=== PATIENT | female | born 1970 | race Caucasian/White ===

== ENCOUNTER 2019-10-05 07:09 | Inpatient (IN) | payer OTHER ==
[~2019-10-05 07:09] MED LIST: Acetaminophen 500 MG Tab PO ONE; Celecoxib 200 MG Cap PO ONE; Gabapentin 300 MG Cap PO ONE; Scopolamine 1.5 MG Transdermal Patch TRDERM SCH; cefOXitin 2 GM Vial ONE
[2019-10-05] MEDS ORDERED: Dextrose 5%-Lactated Ringers 1,000 ML IV SCH (07:30)
[2019-10-05] MEDS ORDERED: Ondansetron 4 MG/2 ML SDV ONE (07:38)
[2019-10-05] MEDS ORDERED: Propofol 200 MG/20 ML SDV ONE ×2 (07:38→10:07)
[2019-10-05] MEDS ORDERED: Succinylcholine 200 MG/10 ML MDV ONE (07:38)
[2019-10-05] MEDS ORDERED: Rocuronium 50 MG/5 ML Vial ONE (07:38)
[2019-10-05] MEDS ORDERED: Dexamethasone 4 MG/ML SDV ONE (07:38)
[2019-10-05] MEDS ORDERED: Neostigmine Methylsulfate 1 MG/ML 5 ML Syringe ONE (07:38)
[2019-10-05] MEDS ORDERED: Glycopyrrolate 0.2 MG/ML 5 ML MDV ONE (07:38)
[2019-10-05] MEDS ORDERED: fentaNYL 250 MCG/5 ML SDV ONE ×2 (07:40→09:12)
[2019-10-05] MEDS ORDERED: Albuterol/Ipratropium 3.0-0.5 MG/3 ML Neb Soln NEB ONE (07:46)
[2019-10-05] MEDS ORDERED: cefOXitin 2 GM in Sodium Chloride 0.9% 50 ML IV ONE (08:30)
[2019-10-05] MEDS ORDERED: Ketamine 50 MG in Sodium Chloride 0.9% 49.5 ML IV SCH (08:30)
[2019-10-05] MEDS ORDERED: Magnesium Sulfate 3 GM in Sodium Chloride 0.9% 100 ML IV SCH (08:30)
[2019-10-05] MEDS ORDERED: Ketamine 500 MG/5 ML MDV IV SCH (08:30)
[2019-10-05] MEDS: SODIUM CHLORIDE 0.9% IV ONE ×2 (08:39→12:04)
[2019-10-05] MEDS: MAGNESIUM SULFATE IV ONE ×2 (08:39→12:04)
[2019-10-05] MEDS ORDERED: fentaNYL 100 MCG/2 ML SDV IVPUSH ONE ×2 (10:37→11:13)
[2019-10-05] MEDS ORDERED: hydrOXYzine HCL 100 MG/2 ML SDV IM ONE (10:37)
[2019-10-05] MEDS ORDERED: Ondansetron 4 MG/2 ML SDV IVPUSH PRN (12:17)
[2019-10-05] MEDS ORDERED: diphenhydrAMINE 50 MG/ML SDV IVPUSH PRN (12:19)
[2019-10-05] MEDS ORDERED: Metoclopramide 10 MG/2 ML SDV IVPUSH PRN (12:19)
[2019-10-05] MEDS ORDERED: Albuterol/Ipratropium 3.0-0.5 MG/3 ML Neb Soln INH PRN (12:19)
[2019-10-05] MEDS ORDERED: Labetalol 20 MG/4 ML Syringe IVPUSH PRN (12:19)
[2019-10-05] MEDS ORDERED: HYDROmorphone 0.5 MG/0.5 ML Syringe IVPUSH PRN (12:19)
[2019-10-05] MEDS ORDERED: Cyclobenzaprine 10 MG Tab PO PRN (12:19)
[2019-10-05] MEDS ORDERED: Calcium Gluconate 10% 1 GM/10 ML SDV IVPUSH PRN (12:19)
[2019-10-05] MEDS ORDERED: HYDROmorphone 1 MG/ML Syringe IV PRN (12:19)
[2019-10-05] MEDS ORDERED: hydrOXYzine HCL 100 MG/2 ML SDV IM PRN (12:19)
[2019-10-05] MEDS ORDERED: Acetaminophen 500 MG Tab PO PRN (14:00)
[2019-10-05] MEDS ORDERED: Pantoprazole 40 MG Vial IVPUSH SCH (14:00)
[2019-10-05] MEDS: Albuterol/Ipratropium 3.0-0.5 MG/3 ML Neb Soln INH SCH ×2 (14:47→20:35)
[2019-10-05] MEDS: cefOXitin 2 GM in Sodium Chloride 0.9% 50 ML IV SCH ×2 (14:53→20:35)
[2019-10-05] MEDS: Acetaminophen 500 MG Tab PO SCH ×2 (14:54→22:40)
[2019-10-05] MEDS: Gabapentin 250 MG/5 ML Solution ML 470 ML Bottle PO SCH ×2 (14:56→20:36)
[2019-10-05] MEDS: SCOPOLAMINE PATCH CHECK TOP SCH (15:15)
[2019-10-05] MEDS ORDERED: MVI, Adult with Vitamin K 10 ML, Thiamine 200 MG, Chromium/Copper/Mang/Selen/Zn 1 ML in... IV SCH ×4 (16:00)
[2019-10-05] MEDS: oxyCODONE 5 MG Tab PO PRN (18:05)
[2019-10-05] MEDS: Heparin Sodium 5,000 Units/ML Vial SUBCUT SCH (18:06)
[2019-10-05] MEDS: Dextrose 5%-Lactated Ringers 1,000 ML IV SCH (22:44)
[2019-10-06] MEDS: oxyCODONE 5 MG Tab PO PRN ×2 (00:59→18:09)
[2019-10-06] MEDS: cefOXitin 2 GM in Sodium Chloride 0.9% 50 ML IV SCH (01:01)
[2019-10-06] MEDS ORDERED: Iopamidol 612 MG/ML 50 ML SDV PO PRN (02:03)
[2019-10-06] MEDS: Dextrose 5%-Lactated Ringers 1,000 ML IV SCH (04:48)
[2019-10-06] MEDS: Acetaminophen 500 MG Tab PO SCH ×3 (05:09→21:51)
[2019-10-06] MEDS: Heparin Sodium 5,000 Units/ML Vial SUBCUT SCH ×2 (05:10→17:00)
[2019-10-06] MEDS: Albuterol/Ipratropium 3.0-0.5 MG/3 ML Neb Soln INH SCH ×6 (07:20→20:34)
[2019-10-06] MEDS: Celecoxib 200 MG Cap PO SCH ×2 (09:01→20:35)
[2019-10-06] MEDS: SCOPOLAMINE PATCH CHECK TOP SCH (09:03)
[2019-10-06] MEDS: Gabapentin 250 MG/5 ML Solution ML 470 ML Bottle PO SCH ×3 (09:09→20:34)
[2019-10-07] MEDS: Heparin Sodium 5,000 Units/ML Vial SUBCUT SCH ×2 (05:18→17:56)
[2019-10-07] MEDS: Acetaminophen 500 MG Tab PO SCH ×3 (05:18→21:03)
[2019-10-07] MEDS: Albuterol/Ipratropium 3.0-0.5 MG/3 ML Neb Soln INH SCH ×4 (07:11→21:03)
[2019-10-07] MEDS: Docusate Sodium 100 MG Cap PO SCH ×2 (08:26→21:01)
[2019-10-07] MEDS: Bisacodyl 5 MG Tab PO SCH ×2 (08:26→21:01)
[2019-10-07] MEDS: SCOPOLAMINE PATCH CHECK TOP SCH (08:29)
[2019-10-07] MEDS: Celecoxib 200 MG Cap PO SCH ×2 (08:29→21:03)
[2019-10-07] MEDS: Gabapentin 250 MG/5 ML Solution ML 470 ML Bottle PO SCH ×3 (08:32→21:07)
[2019-10-07] MEDS ORDERED: Cyanocobalamin (Vitamin B12) 1,000 MCG/ML SDV IM ONE (09:00)
--- NOTE | 2019-10-07 15:02 | PN ---
DATE OF SERVICE: 10/06/2019 The patient has been afebrile with stable vital signs status post sleeve gastrectomy and hiatal hernia repair yesterday. Clinically, she is doing well. Upper GI x-ray looked good. She is tolerating oral diet. We will go up to step 2 diet. and she will probably be ready for discharge home tomorrow. Rafa Mcmanus MD /[id number]
[2019-10-08] MEDS: Heparin Sodium 5,000 Units/ML Vial SUBCUT SCH (05:05)
[2019-10-08] MEDS: Acetaminophen 500 MG Tab PO SCH (05:06)
[2019-10-08] MEDS: Albuterol/Ipratropium 3.0-0.5 MG/3 ML Neb Soln INH SCH (07:30)
[2019-10-08] MEDS ORDERED: Ondansetron 4 MG Tab.DIS PO PRN (07:48)
[2019-10-08] MEDS: Celecoxib 200 MG Cap PO SCH (08:05)
[2019-10-08] MEDS: Docusate Sodium 100 MG Cap PO SCH (08:06)
[2019-10-08] MEDS: Bisacodyl 5 MG Tab PO SCH (08:06)
[2019-10-08] MEDS: Gabapentin 250 MG/5 ML Solution ML 470 ML Bottle PO SCH (08:08)
--- NOTE | 2019-10-08 08:49 | CR ---
UGI Limited HISTORY: Postbariatric surgery FINDINGS: Patient swallowed water-soluble contrast. Upright views of the abdomen show no evidence of extravasation or obstruction. There is a small jejunal diverticula IMPRESSION: Status post bariatric surgery No extravasation or obstruction seen
--- NOTE | 2019-10-08 11:21 | PN ---
DATE OF SERVICE: 10/07/2019 The patient has been afebrile with stable vital signs. She is feeling fairly crampy at this point, not quite ready to go home. We will work on getting the bowels going today. Also, she needs little bit more workup with regard to pulmonary toilet. She will likely be ready for discharge home tomorrow. Rafa Mcmanus MD /[id number]
--- NOTE | 2019-10-08 12:12 | DISCH ---
ADMISSION DIAGNOSES: 1. Morbid obesity. 2. BMI 40.7. 3. Hypothyroidism. DISCHARGE DIAGNOSES: Laparoscopic sleeve gastrectomy, liver biopsy, repair of diaphragmatic hernia with mesh and excision of mediastinal lipoma for morbid obesity, hepatomegaly, paraesophageal diaphragmatic hernia, and mediastinal lipoma. Date of surgery: 10/05/2019. Surgeon: Rafa Mcmanus MD. HISTORY: Ching Georges is a 49-year-old female with morbid obesity and increasing comorbidities. After preoperative evaluation and discussion of possible risks and possible complications, she wished to proceed with surgical procedure. HOSPITAL COURSE: Ching had her surgery on 10/05/2019. She had no operative complications. On postoperative day #1, her upper GI was normal. She was started on step 2 gastric bypass diet. On postop day #2, she got bowel stimulation, vitamin B12 1000 mcg IM injection. Her activity was good. Vital signs remained stable. On postoperative day #3, she was able to be discharged to home without any complications. PHYSICAL EXAMINATION: GENERAL: Ching Georges is a 49-year-old female. VITAL SIGNS: Height is 5 feet 4.5 inches, weight is 241 pounds, BMI 40.7. TPR 96.8, 93, 18, blood pressure 120/61. HEENT: Negative. NECK: Supple. HEART: Regular rate and rhythm. LUNGS: Clear. ABDOMEN: Sutures intact. 4x4s will be placed over PIETRO drain when removed. Abdominal binder has been on. EXTREMITIES: Without peripheral edema. DISPOSITION: Discharged to home. CONDITION: Stable and improving. FOLLOWUP: Appointment with Georgie Chan PA-C, on 10/15/2019 at 10:00 a.m. HOME MEDICATIONS: 1. Tylenol 1000 mg every 8 hours scheduled for 2 weeks. 2. Zofran ODT 4 mg every 4 hours p.r.n. nausea #30. 3. To start taking Celebrex 200 mg for 14 days. 4. Albuterol inhaler 1 to 2 puffs every 4 hours p.r.n. shortness of breath. 5. Thyroid pork, natural thyroid, 65 mg oral daily. 6. Stop taking ibuprofen. DIET: Step 2 gastric bypass diet with no cereal until 11/05/2019. Drink 8 to 10 glasses of water a day. ACTIVITY: No lifting greater than 10 pounds for 2 weeks. Other activity: Walk at least 6 times daily inside your home. Driving after discharge: Do not drive for 1 week. Shower/bathing: May shower. DISCHARGE INSTRUCTIONS: Notify provider if any fever, increased pain, nausea, or vomiting. Keep site clean and dry. Wear abdominal binder for 2 weeks and then as tolerated. Use incentive spirometer 10 times every hour while awake.
--- NOTE | 2019-10-14 11:06 | OR ---
DATE OF PROCEDURE: 10/05/2019 SURGEON: Rafa Mcmanus MD PREOPERATIVE DIAGNOSIS: Morbid obesity. POSTOPERATIVE DIAGNOSES: 1. Morbid obesity. 2. Marked hepatomegaly. 3. Paraesophageal diaphragmatic hernia. 4. Mediastinal lipoma. OPERATIVE PROCEDURES: 1. Laparoscopic sleeve gastrectomy (27026). 2. Diony-Cut needle liver biopsy (28890). 3. Repair of paraesophageal diaphragmatic hernia with mesh (28607). 4. Excision of mediastinal lipoma (21917). ANESTHESIA: General. INDICATIONS FOR PROCEDURE: This is a 49-year-old female presenting with longstanding morbid obesity, increasingly significant comorbidities. After preoperative evaluation and discussion, she wished to proceed with a sleeve gastrectomy. Potential risks of the procedure including bleeding, infection, injury to underlying viscera, problems with the staple line leaking as well as the remote possibility of cardiopulmonary, septic, or hemorrhagic complications leading to were discussed, and the patient wishes to proceed. DETAILS OF PROCEDURE: The patient was taken to the operating room and placed in a supine position. After general endotracheal anesthesia was induced, she converted to a lithotomy position and the abdomen prepped and draped. 15 cm inferior and 5 cm left of the xiphoid process, transverse incision was made and peritoneal cavity inflated 15 mmHg pressure with CO2. Laparoscope was reinserted. No underlying trocar insertion site injuries were seen. Bilateral transversus abdominis plane blocks were then placed and 5 additional trocars were placed across the upper and midabdomen. The liver was noted to be quite enlarged and fatty infiltrated and Diony-Cut biopsies were obtained from left lobe of the liver. Minimal bleeding from the biopsy sites was controlled with electrocautery. The liver was then retracted anteriorly. The patient was noted to have a fairly large paraesophageal diaphragmatic hernia. This contained some perigastric fat as well as some omentum in it. This was reduced and peritoneum overlying it was initially divided anteriorly, then the crura dissected from the distal esophagus on each side and then the retroesophageal plane dissected. The soft tissues around the esophagus were then freed up such that roughly 4 cm intraabdominal esophageal length was established. During the course of the dissection, mediastinal lipoma was encountered and facilitated more adequate crural repair. This was removed. The crura was then closed posteriorly with 0 Ethibond sutures reinforced with PTFE pledgets. Due to the size of the diaphragmatic hernia, the crural repair was augmented with a Phasix ST mesh cut such that it would lay over the crural repair and snugly onto the sides of the crura. This was fixed with some titanium tacking screws. At this point, the omentum was then divided away from the greater curvature of the stomach with Harmonic Scalpel. This continued proximally to include division including the highest and posterior short gastric vessels. The fundus of stomach was then removed from the otherwise skeletonized left crura at this point to avoid diagonally large pouch in that area. The omental division then continued distally to 0.2 cm proximal to the pylorus. Continuing at that level, the sleeve gastrectomy was initiated with 1st 3 firings being unreinforced black loads. Care was taken to avoid overtightening of the incisura angularis. At this point, a 22-Kyrgyz tube was placed orally and positioned along the lesser curvature of the stomach placed on suction, and the remainder of the sleeve gastrectomy. Staple lines were placed with a combination of reinforced black and reinforced purple loads and the specimen passed off the site. The diaphragmatic hernia, the area around the esophagogastric junction was then reinforced with some fibrin sealant as well as the omentum being tacked up into that area. The remainder of the sleeve gastrectomy also then had some fibrin sealant placed on the staple line. A leak test was accomplished with injection of air into the gastric tube while the duodenum was compressed, and the area being soaked in antibiotic-containing saline solution. No leaks or bleeding or other problems were noted. The orogastric tube was then removed. Specimen was then delivered at this point through the left lateral trocar site. A single Reynaldo-Calvo drain was then placed adjacent to the esophagogastric junction and from there up into the splenic fossa. Trocars were then removed. The fascia at the trocar sites was closed with 0 Vicryl stitch and skin with 4-0 Vicryl skin stitch. Dressing was applied. The patient was taken to the recovery room in satisfactory condition. There were no evident complications. Rafa Mcmanus MD /[id number]
== END 2019-10-08 09:20 | disposition home or self-care (01) | DRG 621 ==
LOC: JP.SDS 07:09 → JP.SDSSCHI 07:09 → EDSTATUS 07:15 → JP.MS 10:30
PROVIDERS: ADMIT Surgery; ATTEND Surgery
PROC: 0DB64Z3 Excision of Stomach, Percutaneous Endoscopic Approach, Vertical (ICD-10-PCS; principal; 2019-10-05)
PROC: 0FB24ZX Excision of Left Lobe Liver, Percutaneous Endoscopic Approach, Diagnostic (ICD-10-PCS; 2019-10-05)
PROC: 0BUT4JZ Supplement Diaphragm with Synthetic Substitute, Percutaneous Endoscopic Approach (ICD-10-PCS; 2019-10-05)
PROC: 0JB63ZZ Excision of Chest Subcutaneous Tissue and Fascia, Percutaneous Approach (ICD-10-PCS; 2019-10-05)
DX: E66.01 Morbid (severe) obesity due to excess calories (principal); Z68.41 Body mass index [BMI] 40.0-44.9, adult; E03.9 Hypothyroidism, unspecified; R16.0 Hepatomegaly, not elsewhere classified; D17.4 Benign lipomatous neoplasm of intrathoracic organs
CPT/HCPCS: 36415; 74240; 74240-26; 81025; 83735; 84100; 86850; 86900; 86901; 88304; 88307; 88313; 94640; 94762; A9270-GY; C1713; C1781; C9113; J0171; J0330; J0694; J1100; J1170; J1644; J2405; J2704; J2710; J2765; J2795; J3010; J3410; J3411; J3420; J3475; J3490; J7050; J7121; J7620-GY; Q9967

== ENCOUNTER 2020-07-17 00:10 | Emergency (ER) | payer OTHER ==
[2020-07-17] MEDS ORDERED: Ondansetron 4 MG Tab.DIS PO ONE (01:11)
[2020-07-17] MEDS ORDERED: Acetaminophen 500 MG Tab PO ONE (01:12)
[2020-07-17] MEDS ORDERED: Bacitracin Oint 1 GM U/D Packet TOP ONE (01:14)
--- NOTE | 2020-07-17 01:15 | EDM.PDOC ---
ED HPI GENERAL MEDICAL PROBLEM - General Chief Complaint: Laceration Stated Complaint: FELL HITTING RIGHT SIDE OF HEAD Time Seen by Provider: 07/17/20 00:50 Source of Information: Reports: Patient, Old Records, RN History Limitations: Reports: No Limitations - History of Present Illness INITIAL COMMENTS - FREE TEXT/NARRATIVE: 50 yo female was screened in the clinic yesterday for Covid due to recent onset of sx's. Her test results are pending. Tonight she got out of bed to get some food in the kitchen and got light-headed and passed out striking the back of her head. She reports nausea without vomiting and a CALDERA. No new neck pain. 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 laceration Pain Score (Numeric/FACES): 8 - Related Data Allergies Allergy/AdvReac Type Severity Reaction Status Date / Time Penicillins Allergy hives and Verified 07/17/20 00:37 hives in throat clindamycin AdvReac Nausea Verified 07/17/20 00:37 erythromycin base AdvReac Nausea Verified 07/17/20 00:37 gluten AdvReac Nausea Verified 07/17/20 00:37 Sulfa (Sulfonamide AdvReac Nausea Verified 07/17/20 00:37 Antibiotics) Home Meds: Home Meds Thyroid,Pork [Nature-Throid] 65 mg PO DAILY 10/02/19 [History] Albuterol Sulfate [Albuterol Sulfate Hfa] 1 - 2 puff INH Q4H PRN 10/05/19 [History] Ondansetron [Zofran ODT] 4 mg PO Q4H PRN #30 tab.dis 10/08/19 [Rx] Acetaminophen [Tylenol Extra Strength] 1,000 mg PO Q8H 07/17/20 [History] Omeprazole 20 mg PO DAILY 07/17/20 [History] Past Medical History HEENT History: Reports: Impaired Vision, Other (See Below) Other HEENT History: Glasses Respiratory History: Reports: Asthma 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 History: Reports: GERD 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: Musculoskeletal History: Reports: Back Pain, Chronic, Fracture, Neck Pain, Chronic Neurological History: Reports: Migraines Endocrine/Metabolic History: Reports: Hypothyroidism, Obesity/BMI 30+ - Infectious Disease History Infectious Disease History: Reports: Chicken Pox - Past Surgical History HEENT Surgical History: Reports: Adenoidectomy, Tonsillectomy, Other (See Below) Other HEENT Surgeries/Procedures: eyelid surgery Respiratory Surgical History: Reports: None GI Surgical History: Reports: Bariatric Procedure, Cholecystectomy, Hernia Repair/Other Endocrine Surgical History: Reports: Other (See Below) Other Endocrine Surgeries/Procedures: partial thyroidectomy Neurological Surgical History: Reports: None Musculoskeletal Surgical History: Reports: Other (See Below) Other Musculoskeletal Surgeries/Procedures:: left ankle/foot surgery January 2019 Social & Family History - Family History HEENT: Reports: Glaucoma Other HEENT Family History: enlarged arteries in eyes Cardiac: Reports: [place] Oncologic: Reports: Breast - Tobacco Use Tobacco Use Status *Q: Never Tobacco User - Caffeine Use Caffeine Use: Reports: None - Recreational Drug Use Recreational Drug Use: No ED ROS GENERAL - Review of Systems Review Of Systems: See Below Constitutional: Reports: No Symptoms HEENT: Reports: No Symptoms Respiratory: Reports: No Symptoms Cardiovascular: Reports: Lightheadedness (before her fall), Syncope (brief before arrival) GI/Abdominal: Reports: Nausea. Denies: Vomiting : Reports: No Symptoms Musculoskeletal: Reports: No Symptoms Skin: Reports: Wound (occiput) Neurological: Reports: Headache. Denies: Confusion ED EXAM, SKIN/RASH Exam: See Below Exam Limited By: No Limitations General Appearance: Alert, WD/WN, No Apparent Distress Eye Exam: Bilateral Eye: Normal Inspection Ears: Normal External Exam, Normal Canal, Hearing Grossly Normal, Normal TMs Nose: Normal Inspection, No Blood Throat/Mouth: Normal Inspection, Normal Lips, Normal Voice, No Airway Compromise Head: Other (occipital hematoma with a central 2 cm laceration) Neck: Normal Inspection, Supple, Non-Tender Respiratory/Chest: No Respiratory Distress, Lungs Clear, Normal Breath Sounds, No Accessory Muscle Use Cardiovascular: Regular Rate, Rhythm, No Edema Back Exam: Normal Inspection. No: Paraspinal Tenderness, Vertebral Tenderness Extremities: Normal Inspection, Normal Range of Motion, Non-Tender, No Pedal Edema Neurological: Alert, Oriented, CN II-XII Intact, Normal Cognition, No Motor/Sensory Deficits Psychiatric: Normal Affect, Normal Mood Skin: Warm, Dry, Normal Color, No Rash, Wound/Incision Location, Skin: Head (occiput) Characteristics: Linear Associated features: Tenderness, Induration. No: Lymphangitis Course - Vital Signs Last Recorded V/S: Last Vital Signs Temp 36.6 C 07/17/20 00:55 Pulse 80 07/17/20 00:55 Resp 14 07/17/20 00:55 BP 127/78 07/17/20 00:55 Pulse Ox 100 07/17/20 00:55 Orthostatic Blood Pressure [ 136/89 Standing] Orthostatic Blood Pressure [ 136/91 Sitting] Orthostatic Blood Pressure [ 127/85 Supine] - Orders/Labs/Meds Orders: Active Orders 24 hr Category Date Time Status Orthostatic Vital Signs [RC] ASDIRECTED Care 07/17/20 00:42 Active Head wo Cont [CT] Stat Exams 07/17/20 01:13 Taken Meds: Medications Discontinued Medications Generic Name Dose Route Start Last Admin Trade Name Freq PRN Reason Stop Dose Admin Acetaminophen 1,000 mg 07/17/20 01:12 07/17/20 01:16 Tylenol Extra Strength PO 07/17/20 01:13 1,000 mg ONETIME ONE Administration Bacitracin 2 dose 07/17/20 01:14 07/17/20 01:17 Bacitracin Oint 1 Gm TOP 07/17/20 01:15 2 dose ONETIME ONE Administration Ondansetron HCl 4 mg 07/17/20 01:11 07/17/20 01:16 Zofran Odt PO 07/17/20 01:12 4 mg ONETIME ONE Administration - Radiology Interpretation Free Text/Narrative:: Head CT scan-no intracranial pathology CT Results Date: 07/17/20 CT Results Time: 02:05 Departure - Departure Time of Disposition: 02:15 Disposition: Home, Self-Care 01 Condition: Fair Clinical Impression: Scalp hematoma Qualifiers: Encounter type: initial encounter Qualified Code(s): S00.03XA - Contusion of scalp, initial encounter Concussion Qualifiers: Encounter type: initial encounter Loss of consciousness presence/duration: without LOC Qualified Code(s): S06.0X0A - Concussion without loss of consciousness, initial encounter Occipital scalp laceration Qualifiers: Encounter type: initial encounter Qualified Code(s): S01.01XA - Laceration without foreign body of scalp, initial encounter - Discharge Information *PRESCRIPTION DRUG MONITORING PROGRAM REVIEWED*: Not Applicable *COPY OF PRESCRIPTION DRUG MONITORING REPORT IN PATIENT EDMUND: Not Applicable Instructions: Laceration Care, Adult, [id number], Concussion, Adult, [id number] Referrals: PCP,None [Primary Care Provider] - Forms: ED Department Discharge Additional Instructions: Acetaminophen up to 1000 mg every 6 hrs for pain relief. Use Zofran every 6 hrs as needed for nausea control. Clean your wound twice daily with either baby shampoo and water OR 1/2 water and 1/2 peroxide. Dry. Apply antibiotic ointment and a new dressing. Rest. No exertion until you have no nausea or headache remaining. Recheck if worse. Sepsis Event Note (ED) - Evaluation Sepsis Screening Result: No Definite Risk - Focused Exam Vital Signs: Vital Signs Temp Pulse Resp BP Pulse Ox 07/17/20 00:55 36.6 C 80 14 127/78 100 07/17/20 00:54 36.6 C 80 14 127/78 100 - My Orders Last 24 Hours: My Active Orders 07/17/20 00:42 Orthostatic Vital Signs [RC] ASDIRECTED 07/17/20 01:13 Head wo Cont [CT] Stat - Assessment/Plan Last 24 Hours: My Active Orders 07/17/20 00:42 Orthostatic Vital Signs [RC] ASDIRECTED 07/17/20 01:13 Head wo Cont [CT] Stat
--- NOTE | 2020-07-17 02:09 | CRLCT ---
INDICATION: Fall hit head, fall TECHNIQUE: CT Head without i.v. contrast. COMPARISON: None FINDINGS: CSF space: The ventricles are normal for age. Brain: No evidence of mass, acute infarction or hemorrhage is seen. No mass-effect or midline shift is seen. The brain parenchyma is otherwise normal in appearance with preservation of the hoskins-white matter junction. Calvarium: The visualized paranasal sinuses are well aerated. The mastoid air cells are clear. The visualized orbits are grossly unremarkable. The calvarium is unremarkable in appearance with no fractures identified. Large scalp and subcutaneous hematoma with gas noted in the right posterior vertex. IMPRESSION: 1. No evidence of acute infarction, intracranial hemorrhage, or mass-effect seen. Please note that all CT scans at this facility use dose modulation, iterative reconstruction, and/or weight-based dosing when appropriate to reduce radiation dose to as low as reasonably achievable. Dictated by: Micah Pleitez MD @ 07/17/2020 02:07:45 (Electronically Signed)
== END 2020-07-17 02:30 | disposition home or self-care (01) ==
LOC: JP.ED 00:10
DX: S06.0X0A Concussion without loss of consciousness, initial encounter (principal); S01.01XA Laceration without foreign body of scalp, initial encounter; J45.909 Unspecified asthma, uncomplicated; K21.9 Gastro-esophageal reflux disease without esophagitis; E66.9 Obesity, unspecified; Z68.30 Body mass index [BMI] 30.0-30.9, adult; Z88.0 Allergy status to penicillin; Z88.1 Allergy status to other antibiotic agents; Z91.048 Other nonmedicinal substance allergy status; Z88.2 Allergy status to sulfonamides; Z79.899 Other long term (current) drug therapy; W06.XXXA Fall from bed, initial encounter
CPT/HCPCS: 70450; 99284; A9270; 99283

== ENCOUNTER 2021-05-09 12:20 | Emergency (ER) | payer OTHER ==
--- NOTE | 2021-05-09 12:58 | EDM.PDOC ---
ED HPI GENERAL MEDICAL PROBLEM - General Chief Complaint: Lower Extremity Injury/Pain Stated Complaint: RIGHT FOOT PAIN Time Seen by Provider: 05/09/21 12:48 Source of Information: Reports: Patient History Limitations: Reports: No Limitations - History of Present Illness INITIAL COMMENTS - FREE TEXT/NARRATIVE: 50-year-old female was walking on level ground 1 hour ago when she felt a pop and a sharp pain in the lateral aspect of her right foot. She did not turn her ankle or her foot or have any specific injury. She now has swelling, significant pain over the lateral right foot. No other injury. Onset: Sudden Duration: Hour(s): (Just over an hour ago) Location: Reports: Lower Extremity, Right Worsens with: Reports: Other (Weightbearing), Movement Associated Symptoms: Reports: No Other Symptoms Right Foot Pain Score (Numeric/FACES): 4 - Related Data Allergies Allergy/AdvReac Type Severity Reaction Status Date / Time Penicillins Allergy hives and Verified 05/09/21 12:48 hives in throat clindamycin AdvReac Nausea Verified 05/09/21 12:48 erythromycin base AdvReac Nausea Verified 05/09/21 12:48 gluten AdvReac Nausea Verified 05/09/21 12:48 Sulfa (Sulfonamide AdvReac Nausea Verified 05/09/21 12:48 Antibiotics) Home Meds: Home Meds Thyroid,Pork [Nature-Throid] 65 mg PO DAILY 10/02/19 [History] Albuterol Sulfate [Albuterol Sulfate Hfa] 1 - 2 puff INH Q4H PRN 10/05/19 [History] Ondansetron [Zofran ODT] 4 mg PO Q4H PRN #30 tab.dis 10/08/19 [Rx] Acetaminophen [Tylenol Extra Strength] 1,000 mg PO Q8H 07/17/20 [History] Omeprazole 20 mg PO DAILY 07/17/20 [History] Past Medical History HEENT History: Reports: Impaired Vision, Other (See Below) Other HEENT History: Glasses Respiratory History: Reports: Asthma 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 History: Reports: 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: Musculoskeletal History: Reports: Back Pain, Chronic, Fracture, Neck Pain, Chronic Neurological History: Reports: Migraines Endocrine/Metabolic History: Reports: Hypothyroidism, Obesity/BMI 30+ - Infectious Disease History Infectious Disease History: Reports: Chicken Pox - Past Surgical History HEENT Surgical History: Reports: Adenoidectomy, Tonsillectomy, Other (See Below) Other HEENT Surgeries/Procedures: eyelid surgery GI Surgical History: Reports: Bariatric Procedure, Cholecystectomy, Hernia Repair/Other Endocrine Surgical History: Reports: Other (See Below) Other Endocrine Surgeries/Procedures: partial thyroidectomy Musculoskeletal Surgical History: Reports: Other (See Below) Other Musculoskeletal Surgeries/Procedures:: left ankle/foot surgery January 2019 Social & Family History - Family History HEENT: Reports: Glaucoma Other HEENT Family History: enlarged arteries in eyes Cardiac: Reports: [place] Oncologic: Reports: Breast - Tobacco Use Tobacco Use Status *Q: Never Tobacco User - Caffeine Use Caffeine Use: Reports: Energy Drinks - Recreational Drug Use Recreational Drug Use: No Review of Systems - Review of Systems Review Of Systems: See Below Constitutional: Denies: Fever Respiratory: Reports: No Symptoms Cardiovascular: Reports: No Symptoms Musculoskeletal: Reports: Foot Pain (Right side) Skin: Reports: Bruising (Slight bruising appears to be developing over the injured area) Neurological: Reports: Paresthesia (Feels like her foot is "numb") Psychiatric: Reports: No Symptoms ED EXAM, GENERAL - Physical Exam Exam: See Below Exam Limited By: No Limitations General Appearance: Alert, No Apparent Distress Head: Atraumatic Respiratory/Chest: No Respiratory Distress Extremities: Other (Palpation around the right knee, proximal right calf, ankle overall nontender. She has extreme tenderness without crepitus over the lateral aspect of the right foot near the base of the fifth metatarsal.) Neurological: Alert, Oriented Psychiatric: Normal Affect, Normal Mood Skin Exam: Warm, Dry Course - Vital Signs Last Recorded V/S: Last Vital Signs Temp 97.1 F 05/09/21 12:47 Pulse 115 H 05/09/21 12:47 Resp 16 05/09/21 12:47 BP 137/94 H 05/09/21 12:47 Pulse Ox 100 05/09/21 12:47 - Orders/Labs/Meds Orders: Active Orders 24 hr Category Date Time Status Consult to Orthopedic Clinic [CONS] Routine Cons 05/09/21 13:07 Active Foot Comp Min 3V Rt [CR] Stat Exams 05/09/21 12:47 Taken DME for Discharge [COMM] Stat Oth 05/09/21 13:06 Ordered - Re-Assessments/Exams Free Text/Narrative Re-Assessment/Exam: 05/09/21 12:58 A right foot x-ray was obtained. 05/09/21 13:18 X-ray confirms a minimally displaced fracture of the fifth metatarsal at the base. Departure - Departure Time of Disposition: 13:53 Disposition: Home, Self-Care 01 Clinical Impression: Displaced fracture of fifth metatarsal bone, right foot, initial encounter for closed fracture - Discharge Information Instructions: Metatarsal Fracture Referrals: Siobhan Vaughn PA-C [Primary Care Provider] - Forms: ED Department Discharge Care Plan Goals: Wear walking boot as much as possible, especially if up and active. Use crutches to avoid weightbearing on the right foot and recheck with Dr. Olvera next week, they should contact you probably on Tuesday with an appointment time. Ibuprofen or naproxen would be helpful with discomfort. Sepsis Event Note (ED) - Evaluation Sepsis Screening Result: No Definite Risk - Focused Exam Vital Signs: Vital Signs Temp Pulse Resp BP Pulse Ox 05/09/21 12:47 97.1 F 115 H 16 137/94 H 100 05/09/21 12:45 97.1 F 115 H 16 137/94 H 100 - My Orders Last 24 Hours: My Active Orders 05/09/21 12:47 Foot Comp Min 3V Rt [CR] Stat 05/09/21 13:06 DME for Discharge [COMM] Stat 05/09/21 13:07 Consult to Orthopedic Clinic [CONS] Routine - Assessment/Plan Last 24 Hours: My Active Orders 05/09/21 12:47 Foot Comp Min 3V Rt [CR] Stat 05/09/21 13:06 DME for Discharge [COMM] Stat 05/09/21 13:07 Consult to Orthopedic Clinic [CONS] Routine
--- NOTE | 2021-05-11 09:23 | CR ---
Foot Comp Min 3V Rt CLINICAL HISTORY: Injury FINDINGS: There is a transverse lucency through the base of the fifth metatarsal consistent with fracture. Chronology is uncertain. Patient is a small calcaneal spur. IMPRESSION: Transverse nondisplaced fracture through the base of the fifth metatarsal
== END 2021-05-09 13:53 | disposition home or self-care (01) ==
LOC: JP.ED 12:20
DX: S92.351A Displaced fracture of fifth metatarsal bone, right foot, initial encounter for closed fracture (principal); K21.9 Gastro-esophageal reflux disease without esophagitis; J45.909 Unspecified asthma, uncomplicated; E03.9 Hypothyroidism, unspecified; E66.9 Obesity, unspecified; Z68.30 Body mass index [BMI] 30.0-30.9, adult; Z88.0 Allergy status to penicillin; Z88.1 Allergy status to other antibiotic agents; Z91.018 Allergy to other foods; Z88.2 Allergy status to sulfonamides; Z79.899 Other long term (current) drug therapy; X50.1XXA Overexertion from prolonged static or awkward postures, initial encounter; Y93.01 Activity, walking, marching and hiking
CPT/HCPCS: 73630-26-RT; 73630-RT; 99283-25

== ENCOUNTER 2021-12-02 22:39 | Emergency (ER) | payer OTHER ==
[2021-12-02] MEDS ORDERED: Ondansetron 4 MG/2 ML SDV IVPUSH ONE (23:28)
[2021-12-02] MEDS ORDERED: HYDROmorphone 0.5 MG/0.5 ML Syringe IVPUSH ONE (23:28)
[2021-12-02] MEDS ORDERED: Lactated Ringers 1,000 ML IV SCH (23:30)
[2021-12-03] MEDS ORDERED: Sodium Chloride 0.9% 10 ML Syringe FLUSH ONE (00:12)
[2021-12-03] MEDS ORDERED: Sodium Chloride 0.9% 50 ML IV SCH (00:15)
[2021-12-03] MEDS ORDERED: Iopamidol 612 MG/ML 100 ML Bottle IV SCH (00:15)
[2021-12-03] MEDS ORDERED: HYDROmorphone 0.5 MG/0.5 ML Syringe IVPUSH ONE (00:51)
[2021-12-03] MEDS ORDERED: Pantoprazole 40 MG Vial IVPUSH ONE (01:14)
== END 2021-12-03 03:01 | disposition other institution (70) ==
LOC: JP.ED 22:39
DX: K56.609 Unspecified intestinal obstruction, unspecified as to partial versus complete obstruction (principal); K21.9 Gastro-esophageal reflux disease without esophagitis; E03.9 Hypothyroidism, unspecified; E66.9 Obesity, unspecified; Z68.31 Body mass index [BMI] 31.0-31.9, adult; Z88.0 Allergy status to penicillin; Z88.2 Allergy status to sulfonamides; Z88.1 Allergy status to other antibiotic agents
CPT/HCPCS: 36415; 74177; 80053; 83605; 83690; 85025; 96361; 96374; 96375; 96376; 99284; 99285-25; C9113; J1170; J2405; J3490; J7120; Q9967